=== PATIENT | female | born 1960 | race Caucasian/White ===

== ENCOUNTER → 2017-11-09 | Outpatient (CLI) | payer OTHER ==
[2017-11-09 17:51] LABS: ABSOLUTE EOSINOPHILS 0.1 thou/uL (0.0-0.7); ABSOLUTE LYMPHOCYTES 1.5 thou/uL (0.8-5.3); ABSOLUTE MONOCYTES 0.5 thou/uL (0.0-1.2); ABSOLUTE NEUTROPHILS 2.5 thou/uL (1.6-8.1); HEMATOCRIT 38.4 % (37.0-47.0); HEMOGLOBIN 12.8 gm/dL (12.0-15.0); LYMPHOCYTES 31.5 %; MCH 30.6 pg (26.0-34.0); MCHC 33.4 g/dL (28.0-37.0); MCV 91.5 fL (80.0-100.0); MONOCYTES 10.3 %; MPV 8.9 fl. (7.2-11.1); NUCLEATED RBCS 0 /100WBC; PLATELET COUNT* 239 thou/uL (150-400); POLYS 54.2 %; RBC 4.19 mil/uL (4.20-5.00); RDW-CV 13.8 % (10.5-14.5); WBC 4.7 thou/uL (4.0-11.0)
[2017-11-09 18:06] LABS: ALBUMIN 3.6 g/dL (3.4-5.0); CALCIUM 9.1 mg/dL (8.5-10.1); CREATININE 0.7 mg/dL (0.6-1.3); TOTAL BILIRUBIN 0.4 mg/dL (<0.1-1.0); TOTAL PROTEIN 7.2 g/dL (6.4-8.2)
[2017-11-09 18:57] LABS: ESR (SEDRATE) 12 mm/hr (0-30)
[2017-11-10 17:13] LABS: IgA 145 mg/dL (87-352); IgG 1089 mg/dL (700-1600); IgM 56 mg/dL (26-217)
[2017-11-12 16:12] LABS: ANA INTERPRETATION Negative (Negative); ANTI-SSA <0.2 AI (0.0-0.9)
== END ==
LOC: M.ULTRA 15:50
PROVIDERS: Psychiatry & Neurology Neuromuscular Medicine
DX: R60.9 Edema, unspecified (principal); R29.898 Other symptoms and signs involving the musculoskeletal system; Z82.0 Family history of epilepsy and other diseases of the nervous system

== ENCOUNTER → 2017-11-16 | Outpatient (CLI) | payer OTHER | LOC: M.MRI 10-27 17:30 → M.LAB 11-02 14:00 → M.MRI 11-02 14:30 | DX: M48.8X2 Other specified spondylopathies, cervical region (principal); G35 Multiple sclerosis; R29.898 Other symptoms and signs involving the musculoskeletal system; Z82.0 Family history of epilepsy and other diseases of the nervous system; Z86.69 Personal history of other diseases of the nervous system and sense organs ==